=== PATIENT | female | born 1995 | race Caucasian/White ===

== ENCOUNTER 2025-10-31 10:05 | Emergency (ER) | payer OTHER, SELFPAY ==
[2025-10-31] VITALS (15 sets, daily range): BP systolic 111–114; BP diastolic 77; PULSE 73–103; TEMP 36.4; O2SAT 96–100; BMI 26.5
--- NOTE | 2025-10-31 10:27 | ECG_ITS ---
The [facility] Test Date: 2025-10-31 Pat Name: PRABHAKAR RENTERIA Department: Room: - Gender: Female Community Health Advocate: : 1995 Requested By: 1030 Order Number: [id number] Reading MD: KOKO BASILIO M.D. Measurements Intervals [place] Rate: 95 P: 69 VT: 150 QRS: 81 QRSD: 82 T: 42 QT: 338 QTc: 391 Interpretive Statements 1100 Sinus rhythm 9110 normal ECG No previous ECG available for comparison Electronically Signed On 10-31-2025 10:43:54 EST by KOKO BASILIO M.D.
--- NOTE | 2025-10-31 10:27 | XR_ITS ---
The [address] [address] Patient Name: PRABHAKAR RENTERIA MRN: [id number] date: 1995 Sex: F Assigned Patient Location: ED.MAIN Current Patient Location: ED.MAIN Accession/Order Number: [id number] Exam Date: 10/31/2025 10:40 Report Date: 10/31/2025 11:14 At the request of: CORNELIA MARTINEZ MD Procedure: XR chest 1V XR chest 1V 10/31/2025 11:01 AM SIGNS AND SYMPTOMS: ^Chest pain ^Y PROTOCOL: Frontal radiograph of the chest COMPARISON: None FINDINGS: The trachea is midline. The heart and mediastinal structures are within normal limits. The lung parenchyma is clear. The bony thorax is intact. There is a dextro convex curvature of the thoracic spine. XR/XR chest 1V IMPRESSION: No acute cardiopulmonary pathology. Impression dictated by: Clint Mckenna M.D. 10/31/2025 11:14 AM Dictation Location: [place] [address] Electronically authenticated by: [id number] Y Date: 10/31/2025 11:14
--- NOTE | 2025-10-31 10:27 | ED.GENADUL1 ---
HPI HPI - General Adult General Chief complaint: Chest Pain Stated complaint: CHEST PAIN Time Seen by Provider: 10/31/25 10:06 Source: patient Mode of arrival: walk-in History of Present Illness HPI narrative: 30-year-old female presented to the emergency department for chest pain. It started about 35 minutes ago when she was sitting. There was no injury. The back of the right shoulder is also hurting. No fever cough or unusual activity. Symptom has been continuous. Related Data Allergies Allergy/AdvReac Type Severity Reaction Status Date / Time amoxicillin Allergy Severe Hives Verified 10/31/25 10:13 Opioid HPI Opioid Management Most Recent Opioid Data: Last Pain Scale 6 Today, 10:44 Last MAR Pain Assessment Today, 10:44 Review of Systems ROS Narrative A ten point review of systems is negative except as noted above. PFSH PFSH Social History Little interest or pleasure in doing things: not at all Feeling down, depressed, or hopeless: not at all Exam Narrative Exam Narrative: Nurses note and vital signs reviewed General:The patient appears well and in no apparent distress. Skin:Warm, dry, no pallor noted.There is no rash noted. Head:Normocephalic, atraumatic Eye: Normal conjunctiva, no drainage Ears, Nose, Mouth, and Throat: oral mucosa is moist. Nares patent. Cardiovascular:Regular Rate and Rhythm, not tachycardic Respiratory:Patient is in no distress, no accessory muscle use, lungs are clear to auscultation, no wheezing, rales or rhonchi Back:non-tender GI: Soft and nontender Musculoskeletal: The patient has no evidence of calf tenderness, no pitting edema, symmetrical pulses noted bilaterally Neurological:A&O, normal speech Psychiatric:Cooperative Constitutional Vital Signs, click to edit/add: Last Vital Signs Temp 97.6 F 10/31/25 10:08 Pulse 96 H 10/31/25 10:08 Resp 20 10/31/25 10:08 BP 114/77 10/31/25 10:08 Pulse Ox 98 10/31/25 10:08 O2 Del Method Room Air 10/31/25 10:08 Course Vital Signs Vital signs: Vital Signs Temperature 97.6 F 10/31/25 10:08 Pulse Rate 96 H 10/31/25 10:08 Respiratory Rate 20 10/31/25 10:08 Blood Pressure 114/77 10/31/25 10:08 Pulse Oximetry 98 10/31/25 10:08 Oxygen Delivery Method Room Air 10/31/25 10:08 Temperature 97.6 F 10/31/25 10:08 Pulse Rate 96 H 10/31/25 10:08 Respiratory Rate 20 10/31/25 10:08 Blood Pressure 114/77 10/31/25 10:08 Pulse Oximetry 98 10/31/25 10:08 Oxygen Delivery Method Room Air 10/31/25 10:08 Medical Decision Making MDM Narrative Medical decision making narrative: Her workup is negative, including troponin and D-dimer. She has been under a lot of stress recently and the possibility that this is caused by stress was discussed. Treatment diagnosis and follow-up were discussed with the patient. Differential Diagnosis Differential Diagnosis: Pneumothorax, PE, chest wall pain, anxiety, TN Lab Data Lab results reviewed: Yes I reviewed the patient's lab results Labs: Lab Results 10/31/25 Range/Units 10:40 WBC 8.1 (4.0-11.0) 10^3/uL RBC 4.25 (4.20-5.40) 10^6/uL Hgb 11.4 L (12.0-16.0) g/dL Hct 36.0 (36.0-48.0) % MCV 84.7 (81.0-99.0) fL MCH 26.8 (26.7-34.0) pg MCHC 31.7 (29.9-35.2) g/dL RDW 14.3 (11.0-15.0) % Plt Count 300 (150-450) 10^3/uL MPV 11.7 (9.5-13.5) fL Neut % (Auto) 65.7 (43.0-75.0) % Lymph % (Auto) 25.7 (20.5-60.0) % [place] % (Auto) 4.8 (1.7-12.0) % Eos % (Auto) 3.0 (0.9-7.0) % Baso % (Auto) 0.6 (0.2-2.0) % Neut # (Auto) 5.3 (1.4-6.5) 10^3/uL Lymph # (Auto) 2.1 (1.2-3.8) 10^3/uL [place] # (Auto) 0.4 (0.3-0.8) 10^3/uL Eos # (Auto) 0.2 (0.0-0.7) 10^3/uL Baso # (Auto) 0.1 (0.0-0.1) 10^3/uL Abs Immat Gran (auto) 0.02 (0.00-0.03) 10^3/uL Imm/Tot Granulo (auto) 0.2 (0.0-0.5) % D-Dimer <0.19 (<=0.59) mg/L FEU Sodium 143 (136-145) mmol/L Potassium 3.7 (3.5-5.1) mmol/L Chloride 107 (98-107) mmol/L Carbon Dioxide 24.4 (21.0-32.0) mmol/L Anion Gap 15.3 BUN 11.0 (7.0-18.0) mg/dL Creatinine 0.71 (0.55-1.02) mg/dL Est GFR ( Amer) >60 (>=60 mL/min/1.73m^2) Est GFR (Non-Af Amer) >60 (>=60 mL/min/1.73m^2) BUN/Creatinine Ratio 15.5 Glucose 94 (74-106) mg/dL Calcium 9.0 (8.5-10.1) mg/dL Troponin I High Sens <4.0 L (4.0-51.3) pg/mL Imaging Data Chest x-ray: Radiologist's impression: ITS Impressions Chest X-Ray 10/31/25 10:27 IMPRESSION: No acute cardiopulmonary pathology. Impression dictated by: Clint Mckenna M.D. 10/31/2025 11:14 AM Dictation Location[facility] Electronically authenticated by: [id number] Y Date: 10/31/2025 11:14 ECG Data Attestation: I personally reviewed and interpreted this ECG as follows: (EKG on my interpretation shows sinus rhythm with rate of 95 and no acute change) Discharge Plan Discharge Chief Complaint: Chest Pain Clinical Impression: Chest pain Patient Disposition: Home, Self-Care Time of Disposition Decision: 11:46 Condition: Good Mode of Transportation: Private Vehicle Print Language: Mauritanian Instructions: Chest Pain (ED) Referrals: Physician,Non-Staff, MD [Primary Care Provider] - 1 week
--- OUTSIDE RECORDS SUMMARY | 2025-10-31 10:40 | XMS_ITS | Clinical Summary ---
Author Organization [facility] Care Team Providers Care Industrial Organizational Psychologist Name Role Phone Unavailable Primary Care Provider Unavailabl e Social History Tobacco UseTypesPacks/DayYears UsedDateSmoking Tobacco: Never Assessed CommentsUnknownSex and Gender InformationValueDate RecordedSex Assigned at Not on fileLegal UumYohtin97/20/2021 1:28 AM EDTGender IdentityNot on fileSexual OrientationNot on file Plan of Treatment Health MaintenanceDue DateLast DoneCommentsPap Smear (Cervical Cancer Screening) 2017HPV VACCINES (1 - 3-dose SCDM series)2023OVID-19 Vaccine ( season)2025INFLUENZA VACCINE (#1)2025HEPATITIS A VACCINES Aged OutNo longer eligible based on patient's age to complete this topic Meningococcal B VaccineAged OutNo longer eligible based on patient's age to complete this topicPneumococcal Vaccine: Pediatrics (0 to 5 Years) and At-Risk Patients (6 to 49 Years)Aged OutNo longer eligible based on patient's age to complete this topic
--- OUTSIDE RECORDS SUMMARY | 2025-10-31 10:41 | XMS_ITS | Patient Health Record ---
Author Organization [facility] Address [address] [place] [address] Care Team Providers Care Marine Gear Keeper Name Role Phone JULI Vaughn Unavailable [phone] Reason For Referral No Information Plan Of Treatment No Information Insurance Providers Payer Name Payer Address Payer Phone Subscriber Number Group Number Insured Name Patient Relationship to Insured Coverage Start Date Coverage End Date [facility] [address] [place] [address] [id number] [id number] Child - Insured has Financial Responsibility
--- OUTSIDE RECORDS SUMMARY | 2025-10-31 10:41 | XMS_ITS | Clinical Summary ---
Author Organization [facility] [place] [address] Care Team Providers Care Transmission Operator Name Role Phone Unavailable Primary Care Provider Unavailabl e Social History Tobacco UseTypesPacks/DayYears UsedDateSmoking Tobacco: Never Assessed CommentsUnknownSex and Gender InformationValueDate RecordedSex Assigned at Not on fileLegal OtmUwnfvm36/12/2013 2:33 ESTGender IdentityNot on fileSexual OrientationNot on file Plan of Treatment Health MaintenanceDue DateLast DoneCommentsANNUAL RFXTRMSO1996MMR VACCINES (1 of 1 - Standard series)1997DTAP/TDAP/TD (1 - Tdap)2003VARICELLA VACCINES (1 of 2 - 13+ 2-dose series)2009HEPATITIS B VACCINES (1 of 3 - 19+ 3-dose series)2015HPV VACCINES (1 - 3-dose SCDM series)2023 COVID-19 VACCINES (1 - season)2025Zoster Vaccines (1 of 2) 2046HEPATITIS A VACCINESAged OutNo longer eligible based on patient's age to complete this topicHIB VACCINESAged OutNo longer eligible based on patient's age to complete this topicMENINGOCOCCAL B VACCINEAged OutNo longer eligible based on patient's age to complete this topicMENINGOCOCCAL VACCINEAged OutNo longer eligible based on patient's age to complete this topicPNEUMOCOCCAL VACCINEAged OutNo longer eligible based on patient's age to complete this topic POLIO VACCINESAged OutNo longer eligible based on patient's age to complete this topicRSV VACCINES (UNDER 20 MO)Aged OutNo longer eligible based on patient's age to complete this topic
--- OUTSIDE RECORDS SUMMARY | 2025-10-31 10:41 | XMS_ITS | Data Portability ---
Author Organization ARCHIE Cesar [facility], [facility] Address [address] [place] [address] Assessment No assessment recorded. Plan of Treatment Reminders Order DateSubmit DateProviderLast Modified ByTia DetailsLast Modified TimeDetailsAppointmentsNone recorded.LabNone recorded.ReferralNone recorded. ProceduresNone recorded.SurgeriesNone recorded.ImagingNone recorded.Medication Ordersdoxycycline hyclate 100 mg qmeelq89INTERFACENot jltdbdphy34/06/2020 16:05:32ondansetron 8 mg disintegrating yllsnj4901/05/2020 01/05/2020wseyferNot vtajlfchq20/06/2020 15:25:35Diflucan 150 mg tablet wseyferNot /06/2020 15:25:28Bromfed DM 2 mg-30 mg-10 mg/5 mL oral syrupcscherer5Not /19/2018 09:35:51benzonatate 200 mg izkemxa59cscherer5Not available 12/20/2017 09:35:47fluticasone propionate 50 mcg/actuation nasal spray,vsalgsvjpr24cscherer5Not cnjendqvu32/19/2018 09:35:55 Augmentin 875 mg-125 mg cmhzxd42schatman7Not available 12/17/2017 14:06:14Medrol (Sunil) 4 mg tablets in a dose pack ejovnjmk7Jov wydexjfoo12/16/2018 14:06:22Cepacol Sore Throat (benzocaine- menthol) 15 mg-3.6 mg alspaqqn67schatman7Not available 12/17/2017 14:06:17 Patient TargetsNo targets recorded. Patient Instructions Encounter Date Encounter Id Patient Instructions Last Modified By Organization Details Last Modified Time 01/05/2020 [id number] Take medications as prescribed, bland diet and clears until follow up with PCP in 1-2 weeks follow up in urgent care in 72 hours should symptoms mxwzcqjcrso7Myt available 01/05/2020 14:59:04 Reason for Referral None Reported. Problems Name Problem SNOMED Code Status Onset Date Resolution Date Notes Provider Name and Address Organization Details Recorded Time Depressive disorder 88898627 [facility]06[facility] 14:33:33 Problem Notes None recorded. Medical Equipment None Reported. Allergies Allergen ID Allergen Name Allergen Category Reaction Reaction Severity Criticality Documentation Date Start Date Code Code System Note Provider Name and Address Organization Details Recorded Time 81860 amoxicillin medication Not available Not available Not gxjbwndho29/04/6473407KeHpvcOasudjew [facility] 14:26:04 Medications Name Sig Start Date Stop Date Status Note LastModified by Organization Details LastModified Time Prescription - Prior Authori zation Request 02/05/2020completedNot AvailableNot AvailableNot Availableamoxicillin 500 mg capsuleTake 1 capsule every 12 hours by oral route for 10 days.03/06/2017 04/20/2017completedNot AvailableNot AvailableNot AvailableAugmentin 875 mg-125 mg tabletTake 1 tablet every 12 hours by oral route for 10 days.10/17/2017 12/17/2017completedNot AvailableNot AvailableNot AvailableBromfed DM 2 mg-30 mg- 10 mg/5 mL oral syrupTake 10 mL every 4 hours by oral route for 7 days. completedNot AvailableNot AvailableNot Availablebenzonatate 200 mg capsuleTake 1 capsule 3 times a day by oral route for 7 days.12/17/2017 12/20/2017completedNot AvailableNot AvailableNot Availablepromethazine 6.25 mg/5 mL oral syrupTake 5 mL 4 times a day by oral route as needed for 7 days. completedNot AvailableNot AvailableNot AvailableMedrol (Sunil) 4 mg tablets in a dose packtake as dmopbjxd24completedNot AvailableNot AvailableNot AvailablePyridium 100 mg tabletTake 1 tablet 3 times a day by oral route for 2 days.completedNot AvailableNot AvailableNot AvailablePyridium 200 mg tabletTake 1 tablet 3 times a day by oral route for 2 days.completedNot AvailableNot AvailableNot AvailableZithromax Z-Sunil 250 mg tabletTAKE 2 TABLETS (500 MG) BY ORAL ROUTE ONCE DAILY FOR 1 DAY THEN 1 TABLET (250 MG) BY ORAL ROUTE ONCE DAILY FOR 4 DAYS completedNot AvailableNot AvailableNot AvailableDiflucan 150 mg tabletTake 1 tablet by oral route.completedNot Available Not AvailableNot Availablemetronidazole 500 mg slrcnm4305/01/2017completedNot AvailableNot AvailableNot Availableciprofloxacin 500 mg tabletTake 1 tablet every 12 hours by oral route for 7 days.04/20/2017completedNot AvailableNot AvailableNot Availableacetaminophen 500 mg tabletTake 2 tablets by oral route. completedNot AvailableNot AvailableNot Availableguaifenesin 100 mg/5 mL oral liquidTake 10 mL twice a day by oral route for 5 days. completedNot AvailableNot AvailableNot Availableondansetron 8 mg disintegrating tabletPlace 1 tablet every 8 hours by translingual route as needed for 2 days.completedNot AvailableNot AvailableNot AvailableTessalon Perles 100 mg capsuleTake 1 capsule 3 times a day by oral route.completedNot AvailableNot AvailableNot Available cefuroxime axetil 500 mg tabletTake 1 tablet every 12 hours by oral route for 3 days.completedNot AvailableNot AvailableNot Available fluticasone propionate 50 mcg/actuation nasal spray,suspensionSpray 1 spray every day by intranasal route for 10 days.completedNot AvailableNot AvailableNot Availabledoxycycline hyclate 100 mg tabletTake 1 tablet twice a day by oral route for 7 days.02/05/2020activeNot AvailableNot AvailableNot AvailableAugmentin 500 mg-125 mg tabletTake 1 tablet every 12 hours by oral route for 10 days.completedNot AvailableNot AvailableNot AvailableBactrim DS 800 mg-160 mg tabletTake 1 tablet every 12 hours by oral route for 7 days.completedNot AvailableNot AvailableNot Hyxpxrksfzimupnjxbwx05/16/2017completedNot AvailableNot Available Not AvailableDepo-Mvojpkd9109/13/2017completedNot AvailableNot AvailableNot MgbsgvyycLxlniuk08/06/2020completedNot AvailableNot AvailableNot Available Cepacol Sore Throat (benzocaine-menthol) 15 mg-3.6 mg lozengesTake 1 lozenge as needed by mucous route.completedNot AvailableNot Available Not AvailableCamrese 0.15 mg-30 mcg (84)/10 mcg(7) tablets,3 month dose pack 04/20/2017completedNot AvailableNot AvailableNot AvailableCapmist DM 60 mg-15 mg-400 mg tabletTake 1 tablet every 6 hours by oral route. completedNot AvailableNot AvailableNot Available Vitals Date Recorded Body height Body mass index (BMI) Body weight Body temperature Oxygen saturation Heart rate Systolic And Diastolic Provider Name and Address Organization Details Last Updated DateTime 8 157.48 cm 26.1 kg/m2 68526.2 7 g 98.1 [degF] 98 % 78 /min 110/62 mm[Hg] Tai Gusman [facility] 8 14:12:09 Date Recorded Body height Body mass index (BMI) Body weight Body temperature Heart rate Oxygen saturation Systolic And Diastolic Provider Name and Address Organization Details Last Updated DateTime 8 157.48 cm 24.5 kg/m2 87101.3 8 g 98.1 [degF] 83 /min 96 % 102/60 mm[Hg] Asmiat Moorerer [facility] 8 09:39:27 Date Recorded Pain severity - 0-10 verbal numeric rating [Score] - Reported Provider Name and Address Organization Details Last Updated DateTime 12/20/2017 0 Not Available [facility] 8 06:42:59 Date Recorded Body weight Body temperature Oxygen saturation Body height Body mass index (BMI) Heart rate Systolic And Diastolic Provider Name and Address Organization Details Last Updated DateTime 0 79278.1 8 g 98.7 [degF] 98 % 157.48 cm 26.5 kg/m2 86 /min 104/62 mm[Hg] Marce Alex [facility] 0 14:25:54 Date Recorded Body height Body mass index (BMI) Body weight Body temperature Heart rate Oxygen saturation Systolic And Diastolic Provider Name and Address Organization Details Last Updated DateTime 0 157.48 cm 26.3 kg/m2 71379.3 g 98 [degF] 87 /min 98 % 120/70 mm[Hg] Mimi ALAS [facility] 0 15:24:10 Date Recorded Body height Body mass index (BMI) Body weight Body temperature Oxygen saturation Heart rate Respiratory rate Systolic And Diastolic Provider Name and Address Organization Details Last Updated DateTime 7 157.48 cm 26 kg/m2 08540.1 2 g 98.9 [degF] 98 % 85 /min 18 /min 115/60 mm[Hg] nirav schafer [facility] 7 11:02:54 Date Recorded Pain severity - 0-10 verbal numeric rating [Score] - Reported Provider Name and Address Organization Details Last Updated DateTime 10/17/2017 2 Not Available [facility] 8 06:42:32 Social History Question Answer Notes LastModified by Organization D etails LastModified Time Tobacco Smoking Status Current Every Day Smoker [facility] 10:58:14What Was The Date Of Your Most Recent Tobacco Screening?12/17/[id number] not available 06/25/2019How Much Tobacco Do You Smoke?1 GYMxpbfllj265Lbrjxtfqjhi not available 01/05/2020 Sex: Unknown Functional Status Question Answer Note LastModified by Organization D etails LastModified Time What is your level of alcohol consumption? None ihsiktukj460Ivyjutqhpnk not fryazouhv64/08/2016 Mental Status None recorded. Family History Nothing Reported. Medical History Condition Response Coronary Artery Disease N Anxiety/Depression N Gout N Hyperthyroidism N Blood disorders N Blood Transfusion N Head Trauma/Injury N Emphysema N Hernia N ADD N Depression N Lung Disease N Pacemaker N Gastrointestinal Disease N Anxiety Disorder N Meniere's disease N Muscle, Joint, or Bone Problems N Arthritis N Chronic ear infections N Blood Clot N Acid Reflux (GERD) N Cancer N Stroke N Neck Injury N COPD/Emphysema N ADHD N Ulcers/Gastritis N Back Injury N High Cholesterol N Neurologic Disorder N Liver Disease N Organ Transplant N Psychiatric/Mental Health Condition N Headaches N Fibromyalgia N Kidney Disease N N Heart Problems N Migraines N Thyroid Problems N Carpel [place]unnel N Anemia N Multiple Sclerosis N Meningitis N Heart Attack (IA) N Diabetes N Difficulty swallowing N Bleeding Disorder N Eye Trauma N Tuberculosis N AIDS/HIV N Diverticulitis N Nasal polyps N Asthma N Allergies N Hepatitis N Neuropathy N Heart Disease N Hypertension N Osteoporosis N Gynecological History Statement/Question Response Hysterectomy N Current Control Method None Date of LMP 01/20/2020 Breast Feeding? N Obstetrics History GPAL:G 0 P 0 0 1 0 Type Value Ectopics 1 Past Encounters Encounter ID Performer Location Encounter Start Date Encounter Closed Date Diagnosis/Indication Diagnosis SNOMED-CT Code Diagnosis ICD10 Code Diagnosis IMO Codes Diagnosis Note [id number] XIOMY MOLINA [facility] [address] [place] [address] 06/08/2016 19:57:43 06/08/2016 20:32:51 Abscess of skin and/or subcutaneous tissue 00080123 L02.91 groin/bikini [id number] [facility] [address] [place] [address] 01/07/2017 10:47:29001/07/2017 11:03:30Urinary tract infectious shsjecv40496948 N39.0 [id number] [facility] [address] [place] [address] 01/10/2017 10:35: 12:37:26Acute urinary tract bgvjnpyyg341493038 N39.0 [id number] RUSS, [address] [address] 02/14/2017 19:39:47002/14/2017 21:05:28Acute rdskkqauyis351899325W36.9 Upper respiratory jzmgwjiof30728273K90.9 [id number] RUSS, [address] [address] 03/06/2017 14:14:50003/06/2017 17:51:83Cehkeqegqos033927427A28.9 Eqjulaoa49257047R39 [id number] NATALIE[address] [address] 04/20/2017 09:34: 09:44:08Upper respiratory bwqfepkjg84525974N75.9 Urzrkmxps21668891Z28.[id number] [address] 05/01/2017 11:45: 13:24:33Urinary tract infectious wsfglds80044869 N39.0 Dnwevkrval65441073N39.[id number] [address] 08/10/2017 19:28: 20:00:00Acute viral hlbpqgjbrmb329558725M86.9 [id number] [address] 09/13/2017 10:11:141 15:46:42Acute urinary tract ggbvjxqes044331736 N39.0 UA dipstick it showing leukocytes of 70 and negative for nitrates, negative for blood.[id number] BROWN[address] [address] 10/17/2017 10:54:25112/17/2016 11:21:13Acute upper respiratory infection of multiple mekln07392635T29.9 1. pt will f/u PCP in one week2. salt water wtbivml227783YFQQJ [address] [address] 12/17/2017 13:51:48012/17/2017 14:19:52Acute viral qrvxfba447948884Z95.9 X 2 DAYSF/U WITH PCP IN ONE [id number] [address] [address] 12/20/2017 09:21:22012/20/2017 17:31:05Candidiasis of gtdsya67725509P72.3 f/u with pcp in one weekkeep scheduled appt next week with OB/GYNDeclines EWELINA [id number] PALMER [address] [address] 01/05/2020 14:21:34001/05/2020 14:34:25Nausea and tumzaizc14828760K04.2 Viral wzqrbsfqwpiwmlj576798513P36.4 1. Patient reported son had recent stomach bug and has similar symptoms.[id number] Vidhya Sanchez MD[address] [address] 02/05/2020 15:05:0003 16:20:42Acute uwvzevvehhy945130524M34.9 Health Concerns Section Related Observation LastModified by Organization Detai ls LastModified Time None Recorded Concern Status LastModified by Organization Details LastModified Time None Recorded Advance Directives Directive None Recorded Payers Insurance Date Sequence Insurance Name Policy Number Policy Pham Covered Member ID Pham Member ID Guarantor Name 02/15/2020 2 *SELF PAY* Marialuisa Damon20203[place]Marialuisa Damon [id number] [id number] (POS)Marialuisa [id number] Marialuisa Damon[place]Marialuisa [id number] J Zzcbiwm8203/14/2025PAYMENT PLANSamantha J Czqdxxn2104/20/201736195YHDL-JT (PPO) [id number] Herminio [id number] J Hjhkxso5401/07/2017[place] (PPO)[id number] J [id number] J Snuszhx2510/17/2017[place] (PPO)[id number] Herminio Kendaller [id number] J Tnwokii18[facility] (O)[id number] J [id number] J Marisol 01/05/202024225USJI-GT INDEPENDENCE NADINE [id number] [id number] Marialuisa Damon Notes Date Note Type Note Provider Name and Address Orga nization Details Recorded Time 10/17/2017 text/html Sore ThroatRepor sean by PatientHPIFor quality, patient reportspainfulanddifficulty swallowingbut reportsno hoarsenessandno laryngitis. For severity, patient reportsworsening. For associated symptoms, patient reportscough,itching throat, andno lethargybut reportsno fever,no throat hoarseness,no dysphagia,no nausea,no vomiting,no appetite loss,no headache,no choking,no globus sensation, andno rash. For location, patient reportsbilateral. For context, patient reportsno recent travel,no tick/insect bites,no new medications, andno one else with similar symptoms. For alleviating factors, patient reportsnothing gives relief.pt. states that she is having a cough for about 3 days, states that she is having a sore throat. Art Spain [facility]10/17/2017 11:18:02012/17/2017text/htmlUpper Respiratory SymptomsReported by PatientUpper Respiratory SymptomsFor context, patient reportssmoker. For associated symptoms, patient reportssore throatbut reportsno sputum production,no shortness of breath,no wheezing,no change in number of pillows needed to sleep at night,no sweats,no significant weight gain, no significant weight loss,no vomiting,no diarrhea, andno rash. For location, patient reportsheadandthroat. For severity, patient reportsmoderate. For onset/timing, patient reportssudden.sore throat and nasal drainage x 2 days. no otc medications.[facility]12/17/2017 14:19:text/htmlVaginal DischargeReported by PatientHPIFor associated symptoms, patient reportsvaginal itching,swelling/redness, andpelvic painbut reportsno vaginal burning,no fever/chills,no diarrhea,no abdominal pain,no vaginal pain,no sexually transmitted disease, andno fever. For location, patient reportsvagina. For quality, patient reportswhite. For severity, patient reportsmoderate. For duration, patient reports1 days. For onset/timing, patient reportsdifferent month to month. For context, patient reportscurrent contraception: (not sexually avtive).[facility]12/20/2017 09:45:text/htmlVomiting Reported by PatientHPI:For context, patient reportsothers with similar symptoms but reportsno possible food sources. For associated symptoms, patient reports decreased appetite,nausea, andfatiguebut reportsno abdominal pain,no excess gas, no fever,no chills,no sore throat,no headache,no weight loss,no diarrhea,no hematuria,no hematochezia,no mucus in stool, andno melena. For quality, patient reportsnot changing(nausea not vomited yet). For severity, patient reportsmild. For duration, patient reports1 days. For onset/timing, patient reportsacute. For alleviating factors, patient reportsnothing gives relief. For aggravating factors, patient reportsnothing makes it worse.ROS as noted in the HPI Patient presents with nausea, x 1day, and reports son had stomach bug one week ago. She denies diarrhea or blood in vomit. She denies chance of as she is not sexually active for past year. She denies F, C, ST, painful urination blisters or vesicles. She denies blood in stool, melena, hematochezia, or dizziness.Yessica gomez, [facility] Jwgfic0901/05/2020 14:59:2403text/html C/o sorethroat x 2 days.Exposed to strep from son but doesn't want to be tested due to insurance issues.Vidhya gomez, [facility] Gwturq8302/05/2020 16:14:34 OBGyn Episode No OBEpisode recorded.
--- OUTSIDE RECORDS SUMMARY | 2025-10-31 10:41 | XMS_ITS | Clinical Summary ---
Author Organization [facility] [place] [address] Care Team Providers Care [employer] Manager Name Role Phone Shine Leyva MD Primary Care Provider [phone] Allergies Active AllergyReactionsCriticalityNoted WwtrTgfianukIcpezysmekjSomrb48/25/2019 Medications MedicationSigDispense QuantityRefillsLast FilledStart DateEnd DateStatus hydrOXYzine pamoate (VISTARIL) 50 mg capsule Take 1 Cap by mouth.Active metFORMIN XR (GLUCOPHAGE XR) 500 mg SR-tablet 24 Hr Take 1 Tab by mouth in the morning and 1 Tab in the evening. Take before meals. 4Active Active Problems ProblemNoted DateDiagnosed DateVaginal kyqjoyhwb40/10/2020Encounter for IUD yiglmqo1812/11/2019Breakthrough bleeding with IUD12/11/2019History of gestational diabetes vcqfkvze42/29/2016UTI (lower urinary tract infection)05/05/2013 Overview (05/20/2013): UA neg Culture by PCP was neg No need to sent MODE Eaebzstsgx03/19/2013 Overview (06/24/2013): Off meds Referred to [facility] Immunizations ImmunizationAdministration DatesNext DueMeasles, Mumps and Rubella virus vaccine 08/24/2013TDAP 10yrs and up08/24/2013 Family History Medical HistoryRelationCommentsHypertensionMaternal GrandfatherBlood Clots Maternal GrandmotherHeart DiseaseMaternal GrandmotherHyperlipidemiaMaternal GrandmotherHypertensionMaternal GrandmotherAllergiesMotherCancerMotherDiabetes Paternal UncleBlood DiseaseNeg HxBreast CancerNeg HxRelationStatusComments Maternal GrandfatherMaternal GrandmotherMotherPaternal Uncle Social History Tobacco UseTypesPacks/DayYears UsedDateSmoking Tobacco: Every GgoPlrkzgfzjm5Qafc attempted to quit: 03/13/2013Smokeless Tobacco: Never Tobacco Cessation:Ready to Q uit: Not Asked; Counseling Given: Not Answered Comments:Vapes Alcohol UseStandard Drinks/WeekCommentsNot Currently0 (1 standard drink = 0.6 oz pure alcohol)occasionalAUDIT-CAnswerDate RecordedFrequency of Alcohol ConsumptionMonthly or less02/23/2019Average Number of DrinksNot on file 02/23/2019Frequency of Binge DrinkingNot on file02/23/2019CommentsNoSex and Gender InformationValueDate RecordedSex Assigned at BirthNot on fileLegal PrsLvxprp74/21/2013 11:26 AM EDTGender IdentityNot on fileSexual OrientationNot on file Last Filed Vital Signs Vital SignReadingTime TakenCommentsBlood Bblcvuzw326/8505 9:28 PM EDT Shcpq71695/28/2025 9:28 PM SOARydezkmsmhm98.2 ??C (99 ??F)04/28/2025 9:28 PM EDT Respiratory Kepc321104/28/2025 9:28 PM EDTOxygen Fpdvlyhzkj46%04/28/2025 9:28 PM EDTInhaled Oxygen Concentration--Mhmppo17.1 kg (172 lb 1.6 oz)08/21/2024 8:20 PM AXSDrannh885.5 cm (5' 2 )08/21/2024 8:20 PM EDTBody Mass Index31.48008/21/2024 8:20 PM EDT Plan of Treatment Health MaintenanceDue DateLast DoneCommentsHepatitis C Cgjkcjapn20/12/2014 Hepatitis B Vaccines (1 of 3 - 19+ 3-dose series)2015Pneumococcal Vaccines: Pediatrics (0 to 5 Years) and At-Risk Patients (6 to 49 Years) (1 of 2 - PCV)2015Cervical Cancer Nupssxpsf97/17/2020Pap Smear Co-Test / HPV2021HPV Vaccines (1 - 3-dose SCDM series)2023 DTaP/Tdap/Td Vaccines (2 - Td or Tdap)IUD Fzvmhmb0702/25/2025 02/25/2019Influenza Pytmswzp38/01/2025COVID-19 Vaccines ( - season) 5112/18/2022, 11/03/2021, 03/01/2021, Additional history existsHIV TzngawrrqCgchmdnht44/25/2013HISTORICAL VIEW: MMR LxqikvdgUiabukfibtpj72/23/2013 HIB VaccinesAged OutNo longer eligible based on patient's age to complete this topicHISTORICAL VIEW: Varicella VaccinesDiscontinuedHepatitis A VaccinesAged Out No longer eligible based on patient's age to complete this topicIPV VaccinesAged OutNo longer eligible based on patient's age to complete this topicMeningococcal VaccinesAged OutNo longer eligible based on patient's age to complete this topic Rotavirus VaccinesAged OutNo longer eligible based on patient's age to complete this topic Procedures Procedure NamePriorityDate/TimeAssociated DiagnosisCommentsCYTOLOGY ASSOC PAP W/WRKPLVJfcueah10/17/2017 10:59 AM EDT Screening for malignant neoplasm of cervix HIV AG/AB SCREEN, SBGGnpssjc01/25/2013 3:18 PM EDT Unspecified screening from Last 3 Months or Most Recently Relevant to Health Maintenance Results * CYTOLOGY ASSOC PAP W/REFLEX (06/17/2017 10:59 AM EDT)ComponentValueRef Range Test MethodAnalysis TimePerformed AtPathologist SignaturePAP RESULTCOPATH REPORTCYTOLOGY ASSOCIATESComment: Cytology Report Path #: [id number] ZI Patient : PRABHAKAR DAMON [facility]. Rec. #: [id number] Date: 06/18/2017 Contraceptive History: Hormones SPECIMEN ADEQUACY Satisfactory for evaluation Endocervical component present FINAL CYTOLOGIC DIAGNOSIS Negative for intraepithelial lesion or malignancy This pap was evaluated using the ThinPrep Imaging System Electronically Signed By SHYANN Phillips(ASCP) The Pap smear is only a screening technique to aid in the detection of cervical/uterine cancer. Both false-positive and false negative results have been experienced. Specimen (Source)Anatomical Location / LateralityCollection Method / Volume Collection TimeReceived TimeCERVIX/ENDOCERVICAL (CERVICAL/ENDOCERVICAL) 06/17/2017 10:59 AM EDT06/18/2017 10:21 AM EDT Narrative Resulting Agency Comment Performing Organization Information: ?Site ID: [id number] ?Name: ?Address: ??, ?Director: Authorizing ProviderResult TypeResult StatusSugey Zuleta MDPATHOLOGY ORDERS Final ResultPerforming OrganizationAddressCity/State/ZIP CodePhone Number [facility] [address] [place] [phone] [facility] * HIV 1, 2 SCREEN (02/23/2013 3:18 PM EDT)ComponentValueRef RangeTest Method Analysis TimePerformed AtPathologist SignatureHIV AG/AB SCREENNON-REACTIVE NON-REACTIVELENOX HILL HOSPITAL REF LABComment: NOTE: ??A NON-REACTIVE RESULT INDICATES THAT HIV 1/2 ANTIBODIES AND/OR HIV AG HAVE NOT BEEN FOUND IN THIS PATIENT SPECIMEN. ??A NON-REACTIVE RESULT, HOWEVER, DOES NOT PRECLUDE PREVIOUS EXPOSURE OR INFECTION WITH HIV 1/2. Specimen (Source)Anatomical Location / LateralityCollection Method / Volume Collection TimeReceived IqfdIWGWD14/25/2013 3:18 PM EDT02/23/2013 9:11 PM EDT Narrative Resulting Agency Comment Performing Organization Information: ?Site ID: IO ?Name: [facility] ?Address: [address] [place] [address] ?Director: Dilan Fink M.D. Authorizing ProviderResult TypeResult Lm Box APRNLAB - BLOOD ORDERSFinal ResultPerforming OrganizationAddressty/State/ZIP CodePhone Number [facility] [address] [place] [address] from Last 3 Months or Most Recently Relevant to Health Maintenance Insurance [facility] Address: [facility] [address] [place] [address] * Guarantor: Melly NORRIS TypeRelation to PatientDate of BirthPhone Billing AddressPersonal/FamilyMother [address] [place] [address] * Guarantor: Ana DAMON TypeRelation to PatientDate of BirthPhone Billing AddressPersonal/FamilyFather [address] [place] [address] Care Teams Team MemberRelationshipSpecialtyStart DateEnd Date Shine Leyva MD PCP - GeneralFamily Practice01/19/13
[2025-10-31] MEDS: KETOROLAC TROMETHAMINE 30 MG/ML VIAL IVP (10:44)
[2025-10-31 10:58] LABS: Hematocrit 36.0 % (36.0-48.0); Hemoglobin 11.4 g/dL (12.0-16.0); Immature Granulocytes Abs Auto 0.02 10^3/uL (0.00-0.03); Immature Granulocytes Pct Auto 0.2 % (0.0-0.5); Lymphocytes Absolute Auto 2.1 10^3/uL (1.2-3.8); Mean Corpuscular HGB Conc 31.7 g/dL (29.9-35.2); Mean Corpuscular Hemoglobin 26.8 pg (26.7-34.0); Mean Corpuscular Volume 84.7 fL (81.0-99.0); Platelet Count 300 10^3/uL (150-450); Red Blood Count 4.25 10^6/uL (4.20-5.40); White Blood Count 8.1 10^3/uL (4.0-11.0)
[2025-10-31 11:20] LABS: Anion Gap 15.3; Blood Urea Nitrogen 11.0 mg/dL (7.0-18.0); Calcium 9.0 mg/dL (8.5-10.1); Carbon Dioxide 24.4 mmol/L (21.0-32.0); Chloride 107 mmol/L (98-107); Estimated GFR (African America >60 (>=60 mL/min/1.73m^2); Estimated GFR (Non-African Ame >60 (>=60 mL/min/1.73m^2); Glucose 94 mg/dL (74-106); Potassium 3.7 mmol/L (3.5-5.1); Sodium 143 mmol/L (136-145)
== END 2025-10-31 11:58 | disposition home or self-care (01) ==
PROVIDERS: Emergency Provider Emergency Medicine
DX: R07.9 Chest pain, unspecified (principal)
CPT/HCPCS: 36415; 71045; 80048; 84484; 85025; 85378; 93005; 96374; 99285; J1885